=== PATIENT | female | born 1960 | race Asian ===

== ENCOUNTER 2019-04-30 12:28 | Day surgery (SDC) | payer OTHER ==
[~2019-04-30] VITALS: Ht 157.5 cm; Wt 84.1 kg
[2019-04-30 13:43] VITALS: Ht 157.5 cm; Wt 84.1 kg
[2019-04-30] MEDS ORDERED: METFORMIN (13:50)
[2019-04-30] MEDS ORDERED: MELOXICAM (13:50)
[2019-04-30 14:03] VITALS: BP 119/58; PULSE 63; RESP 20
[2019-04-30] MEDS ORDERED: MIDAZOLAM 1 MG/ML 2 ML INJ ONE ×2 (14:57)
[2019-04-30] MEDS ORDERED: FENTAnyl 50 MCG/ML VIAL ONE (14:57)
[2019-04-30 15:26] VITALS: BP 114/55; RESP 18
== END 2019-04-30 15:28 | disposition home or self-care (01) ==
LOC: GIL 12:28
PROVIDERS: ATTEND Internal Medicine Gastroenterology
DX: K92.1 Melena (principal); K64.8 Other hemorrhoids; E11.9 Type 2 diabetes mellitus without complications
CPT/HCPCS: 45378; 82962; 88305; J2250; J3010; Z7610